=== PATIENT | female | born 1970 | race Caucasian/White ===

== ENCOUNTER → 2017-02-11 08:41 | Outpatient (CLI) | payer MEDICARE, BC ==
[2016-06-12 10:15] VITALS: BMI 36.2
[~2017-02-11 08:41] MED LIST: ABILIFY10 MG PO; ADDERALL 12.512.5 MG PO; AMBIEN10 MG PO; BUPROPION XL150 MG PO; BUPROPION XL300 MG PO; EFFEXOR XR150 MG PO; ESTRATEST 1.25-1 TAB PO; EXCEDRIN EXTRA1 TAB PO; HYDROCODON-ACE1 EAC7 PO; IMITREX100 MG PO; KLONOPIN1 MG PO; LEVAQUIN750 MG PO; OMNICEF300 MG PO; OXYBUTYNIN CHLOR5 MG PO; PHENERGAN25 M1 PO; SYNTHROID25 MCG PO; TOPAMAX50 MG PO; VITAMIN D3400 UNI1 PO; WELLBUTRIN XL150 M1 PO; ZANAFLEX4 MG PO
[2017-02-11 09:25] LABS: HEMATOCRIT 36.4 % (36.0-48.0); HEMOGLOBIN 12.6 g/dL (12-16); LYMPHOCYTES 20.3 % (15-50); MCH 32.4 pg (26.0-34.0); MCHC 34.6 g/dL (31.0-37.0); MCV 93.6 fL (80.0-100.0); NEUTROPHILS 68.9 % (40-80); PLATELET COUNT 295 10x3/uL (130-400); RBC 3.89 10x6/uL (4.00-5.40); RDW 15.3 % (11.5-14.5); WBC 6.2 10x3/uL (4.8-10.8)
[2017-02-11 09:34] LABS: APTT 30.7 SECONDS (22.8-39.4); INR 1.2 (0.85-1.17); PROTIME 15.1 SECONDS (11.6-15.0)
[2017-02-11 09:43] LABS: % SATURATION 23 % (15-55); IRON 100 ug/dl (35-150); TOTAL IRON BIND CAPACITY 423 ug/dl (260-445); UNSAT IRON BIND CAPACITY 323 ug/dl (150-375)
[2017-02-11 09:46] LABS: ALBUMIN 3.3 g/dL (3.4-5.0); ANION GAP 12.9 mmol/L (8-16); BILIRUBIN - DIRECT 0.39 mg/dL (0.00-0.30); BILIRUBIN - INDIRECT 0.24 mg/dL (0.00-1.00); BILIRUBIN - TOTAL 0.63 mg/dL (0.2-1.3); CALCIUM 8.2 mg/dL (8.5-10.1); CARBON DIOXIDE 24.7 mmol/L (21.0-32.0); CREATININE - SERUM 1.1 mg/dL (0.6-1.3); POTASSIUM - SERUM 3.6 mmol/L (3.5-5.1); PROTEIN - SERUM 6.2 g/dL (6.4-8.2)
[2017-02-12 10:19] LABS: HAPTOGLOBIN 90 mg/dL (34-200)
[2017-02-12 14:19] LABS: ANA REFLEX - DIRECT Negative (Negative)
== END | disposition home or self-care (01) ==
LOC: D.LAB 08:41 → D.CT 09:30
PROVIDERS: Internal Medicine Medical Oncology
DX: R79.89 Other specified abnormal findings of blood chemistry (principal); R10.13 Epigastric pain; D49.0 Neoplasm of unspecified behavior of digestive system

== ENCOUNTER → 2017-02-19 08:42 | Outpatient (CLI) | payer MEDICARE ==
[2016-06-12 10:15] VITALS: BMI 36.2
== END | disposition home or self-care (01) ==
LOC: D.RT 08:42
DX: J98.11 Atelectasis (principal)

== ENCOUNTER 2017-02-26 05:32 | Outpatient (CLI) | payer MEDICARE ==
[~2017-02-26] VITALS: Ht 165.1 cm; Wt 88.6 kg
[2017-02-26] MEDS ORDERED: GLEEVEC400 MG PO (06:27)
[2017-02-26 06:33] LABS: BASOPHILS 0.8 % (0-2); EOSINOPHILS 1.3 % (0-7); HEMATOCRIT 35.7 % (36.0-48.0); HEMOGLOBIN 12.4 g/dL (12-16); IMMATURE GRANULOCYTES 0.2 % (0-5); LYMPHOCYTES 22.3 % (15-50); MCH 31.6 pg (26.0-34.0); MCHC 34.7 g/dL (31.0-37.0); MCV 90.8 fL (80.0-100.0); MEAN PLATELET VOLUME 10.5 fL (7.4-10.4); MONOCYTES 8.7 % (2-11); NEUTROPHILS 66.7 % (40-80); PLATELET COUNT 276 10x3/uL (130-400); RBC 3.93 10x6/uL (4.00-5.40); WBC 6.3 10x3/uL (4.8-10.8)
[2017-02-26 06:42] LABS: APTT 28.3 SECONDS (22.8-39.4); INR 1.16 (0.85-1.17); PROTIME 14.7 SECONDS (11.6-15.0)
[2017-02-26 06:53] VITALS: Ht 165.1 cm; Wt 88.6 kg
[2017-02-26 06:59] LABS: ANION GAP 13.3 mmol/L (8-16); CARBON DIOXIDE 22.8 mmol/L (21.0-32.0); CREATININE - SERUM 1.1 mg/dL (0.6-1.3); POTASSIUM - SERUM 3.1 mmol/L (3.5-5.1)
--- NOTE | 2017-02-26 13:19 | NUR ---
1300 ALL VS TAKEN AND PLACED ON POST-OP SHEET AND PLACED IN CHART, IV DC WITH CATHER TIP INTACT
== END 2017-02-26 13:00 | disposition home or self-care (01) ==
LOC: D.OPS 05:32 → D.CT 08:00 → D.OPS 13:00
PROVIDERS: Specialist
DX: R79.89 Other specified abnormal findings of blood chemistry (principal); Z01.812 Encounter for preprocedural laboratory examination; Z85.028 Personal history of other malignant neoplasm of stomach

== ENCOUNTER → 2017-06-12 17:10 | Outpatient (CLI) | payer MEDICARE ==
[2017-02-26 06:53] VITALS: BMI 32.5
[~2017-06-12 17:10] MED LIST changes: +GLEEVEC400 MG PO
== END | disposition home or self-care (01) ==
LOC: D.MAMMO 13:00
DX: Z12.31 Encounter for screening mammogram for malignant neoplasm of breast (principal)

== ENCOUNTER → 2017-07-17 10:00 | Outpatient (CLI) | payer MEDICARE ==
[2017-02-26 06:53] VITALS: BMI 32.5
== END | disposition home or self-care (01) ==
LOC: D.CT 10:00
DX: C49.4 Malignant neoplasm of connective and soft tissue of abdomen (principal); D64.9 Anemia, unspecified; D72.89 Other specified disorders of white blood cells

== ENCOUNTER → 2018-04-07 09:32 | Outpatient (CLI) | payer MEDICARE ==
[2017-02-26 06:53] VITALS: BMI 32.5
== END | disposition home or self-care (01) ==
LOC: D.CT 09:32
DX: C49.4 Malignant neoplasm of connective and soft tissue of abdomen (principal); D64.9 Anemia, unspecified; D72.89 Other specified disorders of white blood cells

== ENCOUNTER → 2018-06-13 08:00 | Outpatient (CLI) | payer MEDICARE ==
[2017-02-26 06:53] VITALS: BMI 32.5
== END | disposition home or self-care (01) ==
LOC: D.MAMMO 08:00
DX: Z12.31 Encounter for screening mammogram for malignant neoplasm of breast (principal)

== ENCOUNTER → 2018-07-23 19:32 | Outpatient (CLI) | payer MEDICARE ==
[2017-02-26 06:53] VITALS: BMI 32.5
== END | disposition home or self-care (01) ==
LOC: D.MAMMO 10:00
DX: R92.8 Other abnormal and inconclusive findings on diagnostic imaging of breast (principal)

== ENCOUNTER → 2018-12-15 08:33 | Outpatient (CLI) | payer MEDICARE ==
[2017-02-26 06:53] VITALS: BMI 32.5
== END | disposition home or self-care (01) ==
LOC: D.CT 08:33
DX: C49.4 Malignant neoplasm of connective and soft tissue of abdomen (principal); D64.9 Anemia, unspecified; D72.89 Other specified disorders of white blood cells

== ENCOUNTER → 2019-06-15 09:23 | Outpatient (CLI) | payer MEDICARE ==
[2017-02-26 06:53] VITALS: BMI 32.5
== END | disposition home or self-care (01) ==
LOC: D.CT 09:23
PROVIDERS: ATTEND Internal Medicine Medical Oncology
DX: C49.4 Malignant neoplasm of connective and soft tissue of abdomen (principal)

== ENCOUNTER 2019-07-09 08:00 | Outpatient (CLI) | payer MEDICARE ==
[2017-02-26 06:53] VITALS: BMI 32.5
== END 2019-07-09 23:59 | disposition home or self-care (01) ==
LOC: D.MAMMO 08:00
PROVIDERS: ATTEND Family Medicine
DX: Z12.31 Encounter for screening mammogram for malignant neoplasm of breast (principal)

== ENCOUNTER 2019-09-09 09:00 | Outpatient (CLI) | payer MEDICARE ==
[2017-02-26 06:53] VITALS: BMI 32.5
== END 2019-09-09 10:00 | disposition home or self-care (01) ==
LOC: D.MAMMO 09:00
PROVIDERS: ATTEND Family Medicine
DX: R92.2 Inconclusive mammogram (principal)

== ENCOUNTER → 2019-12-21 09:37 | Outpatient (CLI) | payer MEDICARE ==
[2017-02-26 06:53] VITALS: BMI 32.5
== END | disposition home or self-care (01) ==
LOC: D.CT 09:37
PROVIDERS: ATTEND Internal Medicine Medical Oncology
DX: C49.4 Malignant neoplasm of connective and soft tissue of abdomen (principal); D64.9 Anemia, unspecified; D72.89 Other specified disorders of white blood cells

== ENCOUNTER 2021-01-04 11:09 | Day surgery (SDC) | payer MEDICARE ==
[~2021-01-04] VITALS: Ht 165.1 cm; Wt 64.1 kg
[2021-01-04 13:00] VITALS: BP 120/56; Ht 165.1 cm; Wt 64.1 kg
[2021-01-04 14:15] LABS: APTT 28.8 SECONDS (22.8-39.4); INR 1.05 (0.85-1.17); PROTIME 12.7 SECONDS (11.6-15.0)
[2021-01-04 14:16] LABS: ANION GAP 8.1 mmol/L (8-16); CALCIUM 8.8 mg/dL (8.5-10.1); CARBON DIOXIDE 29.8 mmol/L (21.0-32.0); POTASSIUM - SERUM 3.9 mmol/L (3.5-5.1)
[2021-01-04 14:27] LABS: HEMOGLOBIN 11.4 g/dL (12-16); LYMPHOCYTE ABS# 2.51 10x3/uL (1.18-3.74); MCH 31.8 pg (26.0-34.0); MCHC 32.6 g/dL (31.0-37.0); MCV 97.5 fL (80.0-100.0); MEAN PLATELET VOLUME 10.2 fL (7.4-10.4); NEUTROPHIL ABS# 1.86 10x3/uL (1.56-6.13); PLATELET COUNT 271 10x3/uL (130-400); RBC 3.59 10x6/uL (4.00-5.40); RDW 14.6 % (11.5-14.5); WBC 4.8 10x3/uL (4.8-10.8)
[2021-01-04 16:27] LABS: LYMPHOCYTES 60 % (15-50); NEUTROPHILS 40 % (40-80); PLATELET ESTIMATE NORMAL
--- NOTE | 2021-01-04 17:48 | NUR ---
1745 IV REMOVED AND PRESSURE HELD, INSTRUCTIONS GIVEN.
--- NOTE | 2021-01-04 18:01 | NUR ---
1745 IV REMOVED AND INSTRUCTIONS GIVEN.
== END 2021-01-04 18:00 | disposition home or self-care (01) ==
LOC: D.SP 11:09 → D.CT 14:00 → D.SP 14:00
PROVIDERS: General Practice; ATTEND Internal Medicine Medical Oncology
DX: R16.0 Hepatomegaly, not elsewhere classified (principal); C49.4 Malignant neoplasm of connective and soft tissue of abdomen; D64.9 Anemia, unspecified; D72.89 Other specified disorders of white blood cells; E03.9 Hypothyroidism, unspecified